=== PATIENT | male | born 1950 | race Two or more races ===

== ENCOUNTER 2017-09-03 08:40 | Outpatient (CLI) | payer OTHER | END 2017-09-03 08:48 | disposition home or self-care (01) | LOC: LAB 08:40 | DX: D64.89 Other specified anemias (principal); D68.8 Other specified coagulation defects; E03.8 Other specified hypothyroidism; R07.1 Chest pain on breathing ==

== ENCOUNTER 2017-09-16 09:15 | Inpatient (IN) | payer OTHER ==
[~2017-09-16] VITALS: Ht 167.6 cm; Wt 70.3 kg
[2017-09-16] MEDS ORDERED: RESTORIL PO (10:43)
[2017-09-16] MEDS ORDERED: ALEVE PO (10:43)
[2017-09-16] MEDS ORDERED: ASPIR-LOW81 MG PO (10:44)
[2017-09-25] MEDS ORDERED: COLACE100 MG PO (11:23)
[2017-09-25] MEDS ORDERED: NEURONTIN800 MG PO (11:23)
[2017-09-25] MEDS ORDERED: CIPROFLOXACIN750 MG PO (11:24)
[2017-09-25] MEDS ORDERED: PERCOCET 5-3251 EACH PO (11:25)
[2017-09-25] MEDS ORDERED: CLONAZEPAM1 MG PO (11:25)
== END 2017-09-26 12:42 | disposition home or self-care (01) | DRG 460 ==
LOC: O/R 09-25 04:30 → PED 09-25 04:30 → SURG 09-25 09:15 → PED 09-25 17:59
PROVIDERS: Orthopaedic Surgery Orthopaedic Surgery of the Spine
PROC: 0SG00AJ Fusion of Lumbar Vertebral Joint with Interbody Fusion Device, Posterior Approach, Anterior Column, Open Approach (ICD-10-PCS; 2017-09-25)
PROC: 0ST20ZZ Resection of Lumbar Vertebral Disc, Open Approach (ICD-10-PCS; 2017-09-25)
PROC: 07DS3ZZ Extraction of Vertebral Bone Marrow, Percutaneous Approach (ICD-10-PCS; 2017-09-25)
PROC: 0SG00A0 Fusion of Lumbar Vertebral Joint with Interbody Fusion Device, Anterior Approach, Anterior Column, Open Approach (ICD-10-PCS; principal; 2017-09-25 10:15)
DX: M47.26 Other spondylosis with radiculopathy, lumbar region (principal); M48.061 Spinal stenosis, lumbar region without neurogenic claudication; M51.16 Intervertebral disc disorders with radiculopathy, lumbar region

== ENCOUNTER 2022-08-05 13:48 | Outpatient (CLI) | payer OTHER ==
[~2022-08-05 13:48] MED LIST: ALEVE PO; ASPIR-LOW81 MG PO; CIPROFLOXACIN750 MG PO; CLONAZEPAM1 MG PO; COLACE100 MG PO; NEURONTIN800 MG PO; PERCOCET 5-3251 EACH PO; RESTORIL PO
== END 2022-08-05 13:50 | disposition home or self-care (01) ==
LOC: LAB 13:48
PROVIDERS: ATTEND Orthopaedic Surgery Orthopaedic Surgery of the Spine
DX: U07.1 COVID-19 (principal); Z03.818 Encounter for observation for suspected exposure to other biological agents ruled out; Z20.828 Contact with and (suspected) exposure to other viral communicable diseases